=== PATIENT | female | born 1965 | race Caucasian/White ===

== ENCOUNTER 2018-03-27 21:56 | Emergency (ER) | payer SELFPAY, MEDICAID ==
[2018-03-28] MEDS: KETOROLAC 60 MG INJ IM (00:03)
== END 2018-03-28 00:38 | disposition home or self-care (01) ==
LOC: FTE 03-28 00:38
DX: S39.012A Strain of muscle, fascia and tendon of lower back, initial encounter (principal); S50.02XA Contusion of left elbow, initial encounter; S40.012A Contusion of left shoulder, initial encounter; F17.210 Nicotine dependence, cigarettes, uncomplicated; R07.9 Chest pain, unspecified; V49.40XA Driver injured in collision with unspecified motor vehicles in traffic accident, initial encounter
CPT/HCPCS: 71045; 73030; 73080-LT; 96372; 99284-25